=== PATIENT | female | born 1940 | race Caucasian/White ===

== ENCOUNTER 2017-06-19 09:02 | Day surgery (SDC) | payer MEDICARE, OTHER | END 2017-06-19 12:14 | disposition home or self-care (01) | LOC: SDC 09:02 | PROVIDERS: Ophthalmology | PROC: 08RJ3JZ Replacement of Right Lens with Synthetic Substitute, Percutaneous Approach (ICD-10-PCS; principal; 2017-06-19 12:00) | DX: Z96.1 Presence of intraocular lens (principal); H53.8 Other visual disturbances | CPT/HCPCS: V2632 ==